=== PATIENT | female | born 1995 | race African-American/Black ===

== ENCOUNTER 2025-05-29 13:28 | Emergency (ER) | payer MEDICAID ==
[~2025-05-29] VITALS: Ht 175.3 cm; Wt 86.0 kg
[2025-05-29 13:44] VITALS: O2SAT 99
[2025-05-29] MEDS ORDERED: GABA-1180 MT (15:13)
[2025-05-29] MEDS ORDERED: IBUP-1455 MT (15:13)
[2025-05-29] MEDS: GABAPENTIN 300MG CAPSULE PO ONE (16:09)
[2025-05-29 16:12] VITALS: BP 146/70; PULSE 90; RESP 15; TEMP 36.8; O2SAT 99
== END 2025-05-29 16:13 | disposition home or self-care (01) ==
LOC: ER 13:28
DX: G56.02 Carpal tunnel syndrome, left upper limb (principal)
CPT/HCPCS: 29125; 99283

== ENCOUNTER 2025-06-19 18:20 | Emergency (ER) | payer MEDICAID ==
[~2025-06-19] VITALS: Ht 154.9 cm; Wt 95.0 kg
[~2025-06-19 18:20] MED LIST: GABA-1180 MT; IBUP-1455 MT
[2025-06-19 18:22] VITALS: O2SAT 100
[2025-06-19] MEDS: KETOROLAC 15MG/ML VIAL IM ONE (22:29)
[2025-06-19] MEDS ORDERED: IBUP-1455 MT (23:18)
[2025-06-19 23:20] VITALS: BP 127/61; PULSE 59; RESP 19; TEMP 37; O2SAT 100
== END 2025-06-19 23:36 | disposition home or self-care (01) ==
LOC: ER 18:20
DX: R51.9 Headache, unspecified (principal)
CPT/HCPCS: 81025; 73610; 70450; 70486; 96372; 99285; J1885; Z7610; A6449